=== PATIENT | female | born 2000 | race African-American/Black ===

== ENCOUNTER 2023-12-11 11:21 | Emergency (ER) | payer MEDICAID ==
[~2023-12-11] VITALS: Ht 167.6 cm; Wt 54.4 kg
[2023-12-11 11:34] VITALS: BP 119/88; PULSE 81; RESP 19; TEMP 97.5; O2SAT 100
[2023-12-11] MEDS: ONDANSETRON 4 MG ODT PO ONE (12:23)
[2023-12-11] MEDS ORDERED: ONDA8TAB87 PO (12:39)
== END 2023-12-11 12:57 | disposition home or self-care (01) ==
LOC: MED 11:21
DX: R56.9 Unspecified convulsions (principal); R11.0 Nausea; F17.200 Nicotine dependence, unspecified, uncomplicated
CPT/HCPCS: 81002; 81025; 99283; Q0162